=== PATIENT | female | born 2000 | race Caucasian/White ===

== ENCOUNTER → 2019-08-15 | Outpatient (REF) | payer OTHER | LOC: M SFHCLERA 11:21 | PROVIDERS: ATTEND Physician Assistant | DX: R30.0 Dysuria (principal) ==

== ENCOUNTER → 2019-09-08 | Outpatient (REF) | payer OTHER ==
[2019-09-08 12:56] LABS: HCG, SERUM QUALITATIVE POSITIVE (NEGATIVE)
[2019-09-08 14:23] LABS: CHLAMYDIA DNA AMPLIFICATION NEGATIVE (NEGATIVE); GC DNA AMPLIFICATION NEGATIVE (NEGATIVE)
== END ==
LOC: M SFHCLERA 08:58
PROVIDERS: ATTEND Family Medicine
DX: Z11.3 Encounter for screening for infections with a predominantly sexual mode of transmission (principal)

== ENCOUNTER → 2019-09-10 | Outpatient (REF) | payer OTHER ==
[2019-09-10 18:57] LABS: BASO % 0.9 % (0.0-1.0); EOS # 0.1 10^3/uL (0.0-0.5); EOS % 1.3 % (0.0-3.0); HEMATOCRIT 36.1 % (36.0-47.0); HEMOGLOBIN 11.4 g/dl (12.0-15.5); LYMPH # 2.1 10^3/uL (1.5-5.0); MEAN CORPUSCULAR HEMOGLOBIN 29.2 pg (27.0-33.0); MEAN CORPUSCULAR HGB CONC 31.6 g/dl (32.0-36.5); MEAN CORPUSCULAR VOLUME 92.6 fl (80.0-96.0); MONO # 0.4 10^3/uL (0.0-0.8); MONO % 7.5 % (0.0-5.0); NEUTROPHILS # 2.2 10^3/uL (1.5-8.5); NEUTROPHILS % 46.3 % (36.0-66.0); PLATELET COUNT, AUTOMATED 268 10^3/uL (150-450); WHITE BLOOD COUNT 4.7 10^3/uL (4.0-10.0)
[2019-09-10 19:15] LABS: APPEARANCE, URINE CLEAR (CLEAR); BACTERIA, URINE AUTO NEGATIVE (NEGATIVE); BILIRUBIN, URINE AUTO NEGATIVE (NEGATIVE); BLOOD, URINE BLOOD NEGATIVE (NEGATIVE); COLOR, URINE YELLOW (YELLOW); GLUCOSE, URINE (UA) AUTO NEGATIVE (NEGATIVE); KETONE, URINE AUTO NEGATIVE (NEGATIVE); LEUKOCYTE ESTERASE, URINE AUTO NEGATIVE (NEGATIVE); NITRITE, URINE AUTO NEGATIVE (NEGATIVE); PROTEIN, URINE AUTO NEGATIVE (NEGATIVE); RBC, URINE AUTO 0 /HPF (0-3); SPECIFIC GRAVITY URINE AUTO 1.014 (1.002-1.035); SQUAMOUS EPITHELIAL CELL UR AU 2 /HPF (0-6); UROBILINOGEN, URINE AUTO 0.2 mg/dL (0.0-2.0); WBC, URINE AUTO 0 /HPF (0-3)
== END ==
LOC: M SFHCLERA 11:06
PROVIDERS: ATTEND Family Medicine
DX: Z32.01 Encounter for pregnancy test, result positive (principal)

== ENCOUNTER → 2019-09-11 | Outpatient (REF) | payer OTHER ==
[2019-09-11 16:57] LABS: HCG, SERUM QUANTITATIVE 118 MIU/ML
[2019-09-14 11:50] LABS: HEPATITIS B SURFACE ANTIGEN NEGATIVE (NEGATIVE); RUBELLA IgG QUALITATIVE IMMUNE (IMMUNE)
[2019-09-14 11:51] LABS: HEPATITIS B SURFACE ANTIBODY NEGATIVE (POSITIVE)
[2019-09-14 14:06] LABS: HEPATITIS B CORE ANTIBODY IGG Negative (Negative); HERPES ZOSTER, VARICELLA IgG 233 index (Immune >165)
== END ==
LOC: M SFHCLERA 12:34
PROVIDERS: ATTEND Family Medicine
DX: Z32.01 Encounter for pregnancy test, result positive (principal)

== ENCOUNTER → 2019-09-11 | Outpatient (REF) | payer OTHER | LOC: M SFHCLERA 12:05 | PROVIDERS: ATTEND Family Medicine | DX: Z53.9 Procedure and treatment not carried out, unspecified reason (principal) ==

== ENCOUNTER → 2019-09-13 | Outpatient (REF) | payer OTHER | LOC: M SFHCLERA 15:04 | PROVIDERS: ATTEND Family Medicine | DX: Z32.01 Encounter for pregnancy test, result positive (principal) ==

== ENCOUNTER → 2019-09-18 | Outpatient (CLI) | payer OTHER ==
--- NOTE | 2019-09-18 11:07 | REP ---
Emergency first trimester obstetric sonography: History: Vaginal bleeding. Positive test. Findings: Transabdominal and transvaginal scanning are performed. Visualized bladder phelps are smooth. No free fluid is noted. Uterine dimensions are normal measured at 7.6 x 3.2 x 4.1 cm. Endometrial echo is centrally placed and 0.3 cm thick. No intrauterine gestation is seen. There is some hypoechoic material in the lower uterine segment endometrium on transvaginal imaging 1.6 x 1.3 x 0.7 cm in diameter consistent with a thrombus. No cul-de-sac fluid is seen. Normal ovaries are observed bilaterally. The right ovary measures 2.7 x 1.8 x 1.8 cm. Left ovary dimensions are 2.8 x 2.2 x 2.7 cm. Impression: Normal size uterus without intrauterine gestational sac. A small zone of suspected endometrial thrombus is seen in the lower uterine segment. Normal ovaries. No free fluid. Findings most compatible with spontaneous AB. Clinical and possibly sonographic followup advised. Electronically Signed by Pool Roads MD 09/18/2019 03:52 P
== END ==
LOC: M LRY 08:28
PROVIDERS: ATTEND Family Medicine
DX: Z32.01 Encounter for pregnancy test, result positive (principal)

== ENCOUNTER → 2019-09-18 | Outpatient (REF) | payer OTHER | LOC: M SFHCLERA 12:07 | PROVIDERS: ATTEND Family Medicine | DX: Z32.01 Encounter for pregnancy test, result positive (principal) ==

== ENCOUNTER → 2019-09-20 | Outpatient (REF) | payer OTHER | LOC: M SFHCLERA 12:27 | PROVIDERS: ATTEND Family Medicine | DX: Z32.01 Encounter for pregnancy test, result positive (principal) ==

== ENCOUNTER → 2019-10-25 | Outpatient (REF) | payer OTHER | LOC: M PLALAB 12:56 | PROVIDERS: ATTEND Advanced Practice Midwife | DX: Z32.01 Encounter for pregnancy test, result positive (principal) ==

== ENCOUNTER 2019-12-03 15:07 | Emergency (ER) | payer OTHER ==
[~2019-12-03] VITALS: Ht 160 cm; Wt 62.7 kg
[2019-12-03] MEDS ORDERED: NEXP1IMP SC (15:14)
[2019-12-03] MEDS ORDERED: PREN29CH2 PO (15:14)
[2019-12-03 16:00] LABS: BASO % 0.6 % (0.0-1.0); EOS # 0.1 10^3/uL (0.0-0.5); EOS % 1.7 % (0.0-3.0); HEMATOCRIT 39.4 % (36.0-47.0); HEMOGLOBIN 12.6 g/dl (12.0-15.5); LYMPH % 40.9 % (24.0-44.0); MEAN CORPUSCULAR HEMOGLOBIN 28.1 pg (27.0-33.0); MEAN CORPUSCULAR VOLUME 87.8 fl (80.0-96.0); MONO # 0.5 10^3/uL (0.0-0.8); MONO % 10.4 % (0.0-5.0); NEUTROPHILS # 2.2 10^3/uL (1.5-8.5); NEUTROPHILS % 46.2 % (36.0-66.0); PLATELET COUNT, AUTOMATED 259 10^3/uL (150-450); RED BLOOD COUNT 4.49 10^6/uL (4.00-5.40); WHITE BLOOD COUNT 4.8 10^3/uL (4.0-10.0)
[2019-12-03] MEDS ORDERED: NS 1,000 ML IV ONE (16:00)
[2019-12-03 16:26] LABS: INFLUENZA A AMPLIFICATION NEGATIVE (NEGATIVE); INFLUENZA B AMPLIFICATION NEGATIVE (NEGATIVE)
[2019-12-03 17:53] VITALS: BP 111/76
== END 2019-12-03 17:55 | disposition home or self-care (01) ==
LOC: M ED 15:07
DX: R19.7 Diarrhea, unspecified (principal); F17.200 Nicotine dependence, unspecified, uncomplicated

== ENCOUNTER 2020-01-02 17:09 | Emergency (ER) | payer OTHER ==
[~2020-01-02] VITALS: Ht 160 cm; Wt 68.7 kg
[~2020-01-02 17:09] MED LIST: NEXP1IMP SC; PREN29CH2 PO
[2020-01-02] MEDS ORDERED: ACETAMINOPHEN 325 MG TAB PO ONE (17:45)
[2020-01-02] MEDS ORDERED: GLYCERIN ADULT SUPP PR ONE (17:45)
[2020-01-02 18:08] LABS: BASO % 0.4 % (0.0-1.0); EOS # 0.1 10^3/uL (0.0-0.5); EOS % 0.7 % (0.0-3.0); HEMATOCRIT 41.6 % (36.0-47.0); HEMOGLOBIN 13.5 g/dl (12.0-15.5); LYMPH # 2.2 10^3/uL (1.5-5.0); LYMPH % 33.4 % (24.0-44.0); MEAN CORPUSCULAR HEMOGLOBIN 27.6 pg (27.0-33.0); MEAN CORPUSCULAR HGB CONC 32.5 g/dl (32.0-36.5); MEAN CORPUSCULAR VOLUME 84.9 fl (80.0-96.0); MONO # 0.5 10^3/uL (0.0-0.8); MONO % 6.7 % (0.0-5.0); NEUTROPHILS # 3.9 10^3/uL (1.5-8.5); NEUTROPHILS % 58.5 % (36.0-66.0); PLATELET COUNT, AUTOMATED 271 10^3/uL (150-450); WHITE BLOOD COUNT 6.7 10^3/uL (4.0-10.0)
[2020-01-02 18:32] LABS: ALBUMIN 4.4 GM/DL (3.2-5.2); ALT/SGPT 14 U/L (12-78); BILIRUBIN,DIRECT 0.1 MG/DL (0.0-0.2); BILIRUBIN,TOTAL 0.4 MG/DL (0.2-1.0); BLOOD UREA NITROGEN 12 MG/DL (7-18); CALCIUM LEVEL 9.5 MG/DL (8.5-10.1); CARBON DIOXIDE LEVEL 27 MEQ/L (21-32); CHLORIDE LEVEL 108 MEQ/L (98-107); CREATININE FOR GFR 0.63 MG/DL (0.55-1.30); GLUCOSE, FASTING 79 MG/DL (70-100); HCG, SERUM QUANTITATIVE < 1.0 MIU/ML; LIPASE 83 U/L (73-393); POTASSIUM SERUM 3.7 MEQ/L (3.5-5.1); SODIUM LEVEL 140 MEQ/L (136-145); TOTAL PROTEIN 7.9 GM/DL (6.4-8.2)
[2020-01-02] MEDS ORDERED: COLA100C5 PO (19:14)
[2020-01-02] MEDS ORDERED: MIRA3350 PO (19:14)
[2020-01-02] MEDS ORDERED: MAGNESIUM CITRATE 300 ML BTL PO ONE (19:15)
[2020-01-02 19:18] VITALS: BP 123/78
--- NOTE | 2020-01-02 20:08 | REP ---
KUB: Two views. History: Abdomen pain. History of constipation. Findings: Bowel gas pattern is normal. Psoas margins and flank stripes are intact. There is no evidence of mass, organomegaly, or pathologic calcification. Impression: Negative KUB. Electronically Signed by Pool Rodas MD 01/02/2020 07:59 P
== END 2020-01-02 19:30 | disposition home or self-care (01) ==
LOC: M ED 17:09
DX: K59.00 Constipation, unspecified (principal); R10.9 Unspecified abdominal pain; F31.9 Bipolar disorder, unspecified; F17.290 Nicotine dependence, other tobacco product, uncomplicated; Z88.8 Allergy status to other drugs, medicaments and biological substances

== ENCOUNTER 2020-05-30 14:46 | Emergency (ER) | payer OTHER ==
[~2020-05-30] VITALS: Ht 162.6 cm; Wt 65.1 kg
[~2020-05-30 14:46] MED LIST changes: +COLA100C5 PO; +MIRA3350 PO
[2020-05-30 15:33] LABS: HEMATOCRIT 42.2 % (36.0-47.0); HEMOGLOBIN 13.7 g/dl (12.0-15.5); MEAN CORPUSCULAR HEMOGLOBIN 29.2 pg (27.0-33.0); MEAN CORPUSCULAR HGB CONC 32.5 g/dl (32.0-36.5); PLATELET COUNT, AUTOMATED 277 10^3/uL (150-450); RED BLOOD COUNT 4.69 10^6/uL (4.00-5.40)
[2020-05-30 15:47] LABS: HCG, SERUM QUALITATIVE NEGATIVE (NEGATIVE)
[2020-05-30 16:04] LABS: ACETAMINOPHEN LEVEL < 2.0 UG/ML (10.0-30.0); ALBUMIN 4.1 GM/DL (3.2-5.2); ALT/SGPT 14 U/L (12-78); BILIRUBIN,DIRECT 0.1 MG/DL (0.0-0.2); BILIRUBIN,TOTAL 0.5 MG/DL (0.2-1.0); BLOOD UREA NITROGEN 6 MG/DL (7-18); CALCIUM LEVEL 9.1 MG/DL (8.5-10.1); CARBON DIOXIDE LEVEL 25 MEQ/L (21-32); CHLORIDE LEVEL 112 MEQ/L (98-107); CREATININE FOR GFR 0.68 MG/DL (0.55-1.30); ETHYL ALCOHOL (ETHANOL) < 0.003 % (0.000-0.010); GLUCOSE, FASTING 94 MG/DL (70-100); POTASSIUM SERUM 4.3 MEQ/L (3.5-5.1); SALICYLATE LEVEL < 1.7 MG/DL (5.0-30.0); SODIUM LEVEL 142 MEQ/L (136-145); TOTAL PROTEIN 7.6 GM/DL (6.4-8.2)
[2020-05-30 16:11] LABS: AMPHETAMINES LEVEL URINE NEGATIVE (NEGATIVE); BARBITURATES URINE NEGATIVE (NEGATIVE); BENZODIAZEPINES URINE NEGATIVE (NEGATIVE); CANNABINOIDS URINE NEGATIVE (NEGATIVE); COCAINE METABOLITE URINE NEGATIVE (NEGATIVE); METHADONE URINE NEGATIVE (NEGATIVE); OPIATES URINE NEGATIVE (NEGATIVE); PHENCYCLIDINE URINE NEGATIVE (NEGATIVE)
[2020-05-30 17:29] VITALS: BP 105/71
== END 2020-05-30 17:54 | disposition home or self-care (01) ==
LOC: M ED 14:46
DX: F41.9 Anxiety disorder, unspecified (principal); Z79.3 Long term (current) use of hormonal contraceptives; Z88.8 Allergy status to other drugs, medicaments and biological substances; Z77.098 Contact with and (suspected) exposure to other hazardous, chiefly nonmedicinal, chemicals
CPT/HCPCS: 36415; 80048; 80076; 80307; 84443; 84703; 85027; 99284; G0480

== ENCOUNTER → 2020-07-12 | Outpatient (CLI) | payer OTHER ==
[2020-07-15 14:09] LABS: HSV TYPE I IgG SPECIFIC <0.91 index (0.00-0.90); HSV TYPE I IgM AB <1:10 titer (<1:10); HSV TYPE II IgG SPECIFIC <0.91 index (0.00-0.90); HSV TYPE II IgM ABY <1:10 titer (<1:10)
== END ==
LOC: M LAB 15:38
PROVIDERS: ATTEND Nurse Practitioner Family
DX: N90.89 Other specified noninflammatory disorders of vulva and perineum (principal)

== ENCOUNTER → 2020-07-12 | Outpatient (REF) | payer OTHER | LOC: M SFHCLERA 14:23 | PROVIDERS: ATTEND Nurse Practitioner Family | DX: N89.8 Other specified noninflammatory disorders of vagina (principal) ==

== ENCOUNTER → 2020-09-12 | Outpatient (REF) | payer OTHER ==
[2020-09-12 19:16] LABS: CHLAMYDIA DNA AMPLIFICATION NEGATIVE (NEGATIVE); GC DNA AMPLIFICATION NEGATIVE (NEGATIVE)
== END ==
LOC: M SFHCWAGY 16:48
PROVIDERS: ATTEND Nurse Practitioner Women's Health
DX: Z11.3 Encounter for screening for infections with a predominantly sexual mode of transmission (principal); R39.14 Feeling of incomplete bladder emptying; R82.90 Unspecified abnormal findings in urine

== ENCOUNTER → 2020-10-13 | Outpatient (REF) | payer OTHER ==
[2020-10-13 13:48] LABS: HEMATOCRIT 42.3 % (36.0-47.0); HEMOGLOBIN 13.5 g/dl (12.0-15.5); MEAN CORPUSCULAR HEMOGLOBIN 29.4 pg (27.0-33.0); MEAN CORPUSCULAR HGB CONC 31.9 g/dl (32.0-36.5); MEAN CORPUSCULAR VOLUME 92.2 fl (80.0-96.0); PLATELET COUNT, AUTOMATED 283 10^3/uL (150-450); RED BLOOD COUNT 4.59 10^6/uL (4.00-5.40); WHITE BLOOD COUNT 5.7 10^3/uL (4.0-10.0)
[2020-10-13 14:46] LABS: FREE T4 1.17 NG/DL (0.78-1.33); THYROID STIMULATING HORMONE 1.19 uIU/ML (0.463-3.98)
== END ==
LOC: M PLALAB 10:41
PROVIDERS: ATTEND Nurse Practitioner Women's Health
DX: N93.9 Abnormal uterine and vaginal bleeding, unspecified (principal)

== ENCOUNTER → 2020-10-17 | Outpatient (REF) | payer OTHER | LOC: M SFHCLERA 14:09 | PROVIDERS: ATTEND Nurse Practitioner Family | DX: R35.0 Frequency of micturition (principal) ==

== ENCOUNTER 2020-12-05 14:51 | Inpatient (IN) | payer OTHER ==
[~2020-12-05] VITALS: Ht 162.6 cm; Wt 60.7 kg
[2020-12-05] MEDS ORDERED: DIVA1CAP (15:03)
[2020-12-05] MEDS ORDERED: WELLTAB38 (15:03)
[2020-12-05] MEDS ORDERED: SPRI28TA (15:03)
[2020-12-05 15:49] LABS: HEMATOCRIT 39.9 % (36.0-47.0); HEMOGLOBIN 13.2 g/dl (12.0-15.5); MEAN CORPUSCULAR HEMOGLOBIN 29.7 pg (27.0-33.0); MEAN CORPUSCULAR HGB CONC 33.1 g/dl (32.0-36.5); MEAN CORPUSCULAR VOLUME 89.7 fl (80.0-96.0); PLATELET COUNT, AUTOMATED 280 10^3/uL (150-450); RED BLOOD COUNT 4.45 10^6/uL (4.00-5.40); WHITE BLOOD COUNT 4.9 10^3/uL (4.0-10.0)
[2020-12-05 16:32] LABS: HCG, SERUM QUALITATIVE NEGATIVE (NEGATIVE)
[2020-12-05 16:34] LABS: ACETAMINOPHEN LEVEL < 2.0 UG/ML (10.0-30.0); ALBUMIN 3.8 GM/DL (3.2-5.2); ALT/SGPT 12 U/L (12-78); BILIRUBIN,DIRECT 0.1 MG/DL (0.0-0.2); BILIRUBIN,TOTAL 0.3 MG/DL (0.2-1.0); BLOOD UREA NITROGEN 6 MG/DL (7-18); CARBON DIOXIDE LEVEL 25 MEQ/L (21-32); CHLORIDE LEVEL 108 MEQ/L (98-107); CREATININE FOR GFR 0.61 MG/DL (0.55-1.30); ETHYL ALCOHOL (ETHANOL) < 0.003 % (0.000-0.010); GLOMERULAR FILTRATION RATE > 60.0 (>60); GLUCOSE, FASTING 70 MG/DL (70-100); POTASSIUM SERUM 4.1 MEQ/L (3.5-5.1); SALICYLATE LEVEL < 1.7 MG/DL (5.0-30.0); SODIUM LEVEL 140 MEQ/L (136-145); TOTAL PROTEIN 7.1 GM/DL (6.4-8.2)
[2020-12-05 19:09] LABS: AMPHETAMINES LEVEL URINE NEGATIVE (NEGATIVE); BARBITURATES URINE NEGATIVE (NEGATIVE); BENZODIAZEPINES URINE NEGATIVE (NEGATIVE); CANNABINOIDS URINE NEGATIVE (NEGATIVE); COCAINE METABOLITE URINE NEGATIVE (NEGATIVE); METHADONE URINE NEGATIVE (NEGATIVE); OPIATES URINE NEGATIVE (NEGATIVE); PHENCYCLIDINE URINE NEGATIVE (NEGATIVE)
[2020-12-05] MEDS ORDERED: ACETAMINOPHEN TAB 650MG DOSE (2X325MG) PO PRN (21:55)
[2020-12-05] MEDS ORDERED: MAALOX 30 ML SUSP *UDC PO PRN (21:55)
[2020-12-05] MEDS ORDERED: traZODone 50 MG TAB PO PRN (21:55)
[2020-12-05] MEDS ORDERED: MOM 30ML SUSPENSION UDC PO PRN (21:55)
[2020-12-05] MEDS ORDERED: DIVALPROEX SPRINKLE 125 MG CAP PO ONE (22:45)
[2020-12-05] MEDS ORDERED: BUPR-365 PO (22:54)
[2020-12-05] MEDS ORDERED: SPRI28TA PO (22:54)
[2020-12-05] MEDS ORDERED: DIVA1TAB48 PO (22:54)
[2020-12-05] MEDS ORDERED: LORazepam 1 MG TAB PO PRN (23:00)
[2020-12-05 23:09] LABS: RSV AMPLIFICATION NEGATIVE (NEGATIVE)
[2020-12-06 01:56] VITALS: BP 118/85
[2020-12-06] MEDS ORDERED: buPROPion **XL** TABLET 150MG (WELLBUTRIN XL) PO ONE (13:30)
--- NOTE | 2020-12-06 13:51 | HPEPDOC ---
[facility] Medical History & Physical Date of Admission Dec 05, 2020 Date of Service: Dec 06, 2020 History and Physical Chief complaint: Presented to the emergency room after self harm History of present illness: Patient is 20-year-old female with past medical history of bipolar disorder who presented to the emergency room after injuring her right forearm with a staple remover. Patient was admitted to the inpatient mental health unit under the care of psychiatry for suicidal ideation. Hospitalist service was consulted for medical screening evaluation. Currently patient denies any headache, nausea, vomiting, chest pain, shortness breath, palpitations, abdominal pain consultation, diarrhea, or urinary discomfort. She denies any recent fevers or chills. Reports that her weight has been normal and denies any changes in her appetite. Past Medical History: Bipolar disorder Past Surgical History: No prior surgeries Allergies: See below Medications: See below Family History: - Mother with a history of ovarian cancer Social History: - She reports that she uses e-cigarette regularly since she was 17. Reports occasional use of marijuana and reports that she drinks alcohol; one shot daily for sleep - Denies recent travel or sick contacts - Occupation; patient reports that she has dropped out of school, but works at [employer] Review of Systems: 10 point review of systems complete, all negative otherwise stated in HPI Physical exam: - Vitals: BP [118/85], HR [76], RR [18], Sat [96%RA], Temp [98.5F] - General: Sitting up in chair, Speaking in full sentences, AAOx3 - HEENT: NC, AT, PERRLA - CVS: RRR, +S1S2 - Lungs: Fair air entry bilaterally, No appreciable wheezing / rales / rhonchi - Abdomen: Soft, Non-distended, Non-tender - Extremities: No lower extremity edema, No calf tenderness - Neuro: No focal motor or sensory deficit - Skin: No visible rashes Labs: See below Imaging: See below EKG: See below Assessment and Plan: Suicidal ideation - History of bipolar disorder - Admitted to the inpatient mental health unit under the care of psychiatry - Currently being managed by psychiatry Right forearm abrasion - Area of abrasion of approximately 2.5 inches - No evidence of infection DVT prophylaxis - Will c/w early ambulation 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[employer] was present throughout the duration of this history and physical examination Thank you for this consultation; hospitalist service will now sign off, please reconsult as needed Vital Signs Vital Signs Date Time Temp Pulse Resp B/P (MAP) Pulse Ox O2 Delivery O2 Flow Rate FiO2 12/06/20 10:05 Room Air 12/06/20 01:56 98.5 76 18 118/85 (96) 96 Laboratory Data Labs 24H Laboratory Tests 2 12/05/20 15:34: Urine Opiates Screen NEGATIVE, Urine Methadone Screen NEGATIVE, Urine Barbiturates Screen NEGATIVE, Urine Phencyclidine Screen NEGATIVE, Urine Amphetamines Screen NEGATIVE, Urine Benzodiazepines Screen NEGATIVE, Urine Cocaine Metabolite Screen NEGATIVE, Urine Cannabinoids Screen NEGATIVE 12/05/20 15:36: Nucleated Red Blood Cells % (auto) 0.0, Anion Gap 7L, Glomerular Filtration Rate > 60.0, Calcium Level 9.0, Total Bilirubin 0.3, Direct Bilirubin 0.1, Aspartate Amino Transf (AST/SGOT) 9, Alanine Aminotransferase (ALT/SGPT) 12, Alkaline Phosphatase 75, Total Protein 7.1, Albumin 3.8, Albumin/Globulin Ratio 1.2, Thyroid Stimulating Hormone (TSH) 1.220, Human Chorionic Gonadotropin, Qual NEGATIVE, Salicylates Level < 1.7L, Acetaminophen Level < 2.0L, Ethyl Alcohol Level < 0.003 12/05/20 22:27: Coronavirus (COVID-19)(PCR) NEGATIVE, Influenza Type A (RT-PCR) NEGATIVE, Influenza Type B (RT-PCR) NEGATIVE, Respiratory Syncytial Virus (PCR) NEGATIVE CBC/BMP Laboratory Tests 12/05/20 15:36 Home Medications Scheduled Bupropion HCl (Bupropion Xl) 150 Mg Tab.er.24h, 150 MG PO DAILY Divalproex Sodium (Divalproex Sodium) 125 Mg Tablet.dr, 125 MG PO BID Norgestimate-Ethinyl Estradiol (Sprintec 28 Day Tablet) 1 Each Tablet, 1 TAB PO QHS Allergies Coded Allergies: lamotrigine (Verified Allergy, Unknown, 01/02/20) risperidone (Verified Allergy, Unknown, 01/02/20) VALERIA CRYSTAL MD Dec 06, 2020 13:51
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
[2020-12-06] MEDS: DIVALPROEX SPRINKLE 125 MG CAP PO SCH ×2 (16:06→21:02)
[2020-12-06 16:55] VITALS: BP 131/72
[2020-12-06 21:30] VITALS: BP 133/87
[2020-12-07 06:57] VITALS: BP 117/67
[2020-12-07] MEDS: DIVALPROEX SPRINKLE 125 MG CAP PO SCH (08:55)
[2020-12-07] MEDS ORDERED: buPROPion **XL** TABLET 150MG (WELLBUTRIN XL) PO SCH (09:00)
[2020-12-07] MEDS ORDERED: DIVA1CAP PO (09:17)
[2020-12-07] MEDS ORDERED: DEPA1CAP PO (09:54)
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
== END 2020-12-07 12:15 | disposition home or self-care (01) | DRG 885 ==
LOC: M ED 14:51 → M ED INP 14:52 → M PSY 12-06 01:00
PROVIDERS: ADMIT Psychiatry & Neurology Psychiatry; ATTEND Psychiatry & Neurology Psychiatry
DX: F31.81 Bipolar II disorder (principal); F17.290 Nicotine dependence, other tobacco product, uncomplicated; Z91.5 Personal history of self-harm; Z81.8 Family history of other mental and behavioral disorders; Z20.822 Contact with and (suspected) exposure to COVID-19; Z79.899 Other long term (current) drug therapy; Z88.8 Allergy status to other drugs, medicaments and biological substances; F10.10 Alcohol abuse, uncomplicated; F12.10 Cannabis abuse, uncomplicated; Z63.0 Problems in relationship with spouse or partner